=== PATIENT | male | born 1955 | race Caucasian/White ===

== ENCOUNTER 2018-06-02 10:40 | Emergency (ER) | payer SELFPAY ==
[2018-06-02 11:08] VITALS: TEMP 98.9
--- NOTE | 2018-06-02 11:46 | C.PDOC ---
History Of Present Illness 63 yo male, comes to ER for evaluation of copious bleeding from his left lower extremity which started when he injured his leg while in the shower last night. Patient states the bleeding stopped with a bandage and he presents here today to "get it checked out." Otherwise, he denies any weakness, light headedness, and offers no other medical complaints. Time Seen by Provider: 06/02/18 11:21 Chief Complaint (Nursing): Lower Extremity Problem/Injury History Per: Patient History/Exam Limitations: no limitations Onset/Duration Of Symptoms: Hrs Current Symptoms Are (Timing): Better Additional History Per: Patient Past Medical History Reviewed: Historical Data, Nursing Documentation, Vital Signs Vital Signs: Last Vital Signs Temp 98.9 F 06/02/18 11:05 Pulse 79 06/02/18 11:51 Resp 16 06/02/18 11:51 BP 165/89 H 06/02/18 11:51 Pulse Ox 96 06/02/18 21:26 - Medical History PMH: No Chronic Diseases Surgical History: No Surg Hx Family History: States: No Known Family Hx - Social History Hx Alcohol Use: No Hx Substance Use: No Review Of Systems Cardiovascular: Negative for: Chest Pain Respiratory: Negative for: Shortness of Breath Musculoskeletal: Positive for: Other (bleeding from left lower extremity) Physical Exam - Physical Exam Appears: Non-toxic, No Acute Distress Skin: Warm, Dry, Other (dry bandage to left lower abernathy) Extremity: Normal ROM, No Pedal Edema, No Deformity, Other (dry bandage on left lower anterior abernathy; when removed there is scant oozing from a varicose vein. new pressure dressing applied. multiple varicose veins to both lower extrew, ities) Pulses: Left Dorsalis Pedis: Normal Neurological/Psych: Oriented x3, Normal Speech, Normal Cognition, Normal Motor, Normal Sensation ED Course And Treatment O2 Sat by Pulse Oximetry: 96 (RA) Pulse Ox Interpretation: Normal Medical Decision Making Medical Decision Making: Impression: Varicose vein bleed Plan: -- Wound cleaned and pressure dressing applied to left lower extremity. Post-dressing exam shows neurovascular sensations are intact. Patient stable for discharge home. Disposition Counseled Patient/Family Regarding: Diagnosis, Need For Followup - Disposition Referrals: at [facility] [Outside] Disposition: HOME/ ROUTINE Disposition Time: 11:45 Condition: GOOD Additional Instructions: PLease keep bandage on until tomorrow, remove carefully. If you should start bleeding again. please apply direct pressure. Please wear compression stockings when possible. Follow up in medical clinic. Instructions: Varicose Veins (DC) Forms: [facility] ([place]), General Discharge Instructions - Clinical Impression Clinical Impression: Bleeding from varicose veins of left lower extremity - PA / [employer]PERATOR / Resident Statement MD/DO has reviewed & agrees with the documentation as recorded. - Scribe Statement The provider has reviewed the documentation as recorded by the Scribe (Rosi Marvin) Provider Attestation: All medical record entries made by the Scribe were at my direction and personally dictated by me. I have reviewed the chart and agree that the record accurately reflects my personal performance of the history, physical exam, medical decision making, and the department course for this patient. I have also personally directed, reviewed, and agree with the discharge instructions and disposition.
[2018-06-02 11:52] VITALS: BP 165/89; PULSE 79; RESP 16
[2018-06-02 14:30] VITALS: O2SAT 96
== END 2018-06-02 11:51 | disposition home or self-care (01) ==
LOC: C.ER 10:40
DX: I83.892 Varicose veins of left lower extremity with other complications (principal)